=== PATIENT | male | born 1990 | race Caucasian/White ===

== ENCOUNTER 2024-04-08 11:39 | Emergency (ER) | payer SELFPAY | END 2024-04-08 13:01 | disposition home or self-care (01) | LOC: ERS 11:39 | DX: M71.22 Synovial cyst of popliteal space [Baker], left knee (principal); L03.116 Cellulitis of left lower limb; F17.210 Nicotine dependence, cigarettes, uncomplicated; F17.220 Nicotine dependence, chewing tobacco, uncomplicated ==